=== PATIENT | female | born 1985 ===

== ENCOUNTER 2017-04-12 09:45 | Emergency (ER) | payer MEDICAID ==
[2017-04-12 09:54] VITALS: O2SAT 100
[2017-04-12] MEDS ORDERED: Sodium Chloride 0.9% 1,000 ML IV ONE (10:13)
[2017-04-12] MEDS ORDERED: Sodium Chloride 0.9% 1,000 ML ONE (10:34)
--- NOTE | 2017-04-12 10:38 | RAD ---
PROCEDURE: CHEST RADIOGRAPH, 1 VIEW HISTORY: chest pain COMPARISON: 09/30/2015 FINDINGS: LUNGS: Clear. PLEURA: No pneumothorax or pleural fluid seen. CARDIOVASCULAR: Normal. OSSEOUS STRUCTURES: No significant abnormalities. VISUALIZED UPPER ABDOMEN: Normal. OTHER FINDINGS: None. IMPRESSION: No active disease.
[2017-04-12 10:54] LABS: BASO % 0.3 % (0.0-2.0); EOS % 0.2 % (0.0-4.0); HEMATOCRIT 36.6 % (34.0-47.0); LYMPH # 1.6 K/uL (1.0-4.3); LYMPH % 20.3 % (20.0-40.0); MEAN CORPUSCULAR HEMOGLOBIN 28.7 pg (27.0-31.0); MEAN CORPUSCULAR HGB CONC 33.5 g/dL (33.0-37.0); MEAN PLATELET VOLUME 9.1 fL (7.2-11.7); MONO # 0.5 K/uL (0.0-0.8); MONO % 6.2 % (0.0-10.0); RED CELL DISTRIBUTION WIDTH 12.9 % (11.5-14.5); WHITE BLOOD COUNT 7.8 K/uL (4.8-10.8)
[2017-04-12 11:01] LABS: MEAN CELL VOLUME 85.5 fL (81.0-99.0)
[2017-04-12 11:25] LABS: CHLORIDE 103 mmol/L (98-107)
[2017-04-12 11:26] LABS: SODIUM 138 mmol/L (132-148)
[2017-04-12 11:28] LABS: GFR AFRICAN-AMERICAN > 60
[2017-04-12 11:29] LABS: ALB/GLOB RATIO 1.6 (1.0-2.1); ALKALINE PHOSPHATASE 62 U/L (38-126); ALT/SGPT 13 U/L (9-52); AST/SGOT 57 U/L (14-36); BILIRUBIN,TOTAL 0.7 mg/dL (0.2-1.3); BLOOD UREA NITROGEN 9 mg/dL (7-17); CALCIUM 9.1 mg/dl (8.6-10.4); CARBON DIOXIDE 24 mmol/L (22-30); GLUCOSE,RANDOM 98 mg/dL (65-105); TOTAL PROTEIN 7.1 g/dL (6.3-8.3)
[2017-04-12 11:52] LABS: POTASSIUM 4.1 mmol/L (3.6-5.2)
[2017-04-12 12:21] VITALS: BP 113/78; PULSE 86; RESP 14; TEMP 98
--- NOTE | 2017-04-12 12:23 | C.PDOC ---
History Of Present Illness 31-year-old female, PMHx includes Anxiety and Hiatal hernia, presents to the emergency department with complaints of a sharp pain in her chest, since last night. Patient denies shortness of breath, fevers, cough, numbness/weakness, nausea/vomiting, arm pain, swelling extremities, or any other associated symptoms. No medications taken for symptoms. No known FMHx of cardiac disease < 50yrs. Chief Complaint (Nursing): Chest Pain History Per: Patient History/Exam Limitations: no limitations Onset/Duration Of Symptoms: Hrs Current Symptoms Are (Timing): Still Present Severity: Moderate Quality: Sharp Past Medical History Reviewed: Historical Data, Nursing Documentation, Vital Signs Vital Signs: Last Vital Signs Temp 98 F 04/12/17 12:19 Pulse 86 04/12/17 12:19 Resp 14 04/12/17 12:19 BP 113/78 04/12/17 12:19 Pulse Ox 100 04/12/17 12:25 - Medical History PMH: Anxiety, Asthma, GERD, Hiatal Hernia Denies: Diabetes, Hepatitis, HIV, HTN, Seizures, Sexually Transmitted Disease Family History: States: No Known Family Hx - Social History Hx Tobacco Use: Yes Hx Alcohol Use: Yes Hx Substance Use: No - Immunization History Hx Tetanus Toxoid Vaccination: No Hx Influenza Vaccination: Yes Hx Pneumococcal Vaccination: No Review Of Systems Except As Marked, All Systems Reviewed And Found Negative. Constitutional: Negative for: Fever, Chills Cardiovascular: Positive for: Chest Pain Respiratory: Negative for: Cough, Shortness of Breath Gastrointestinal: Negative for: Nausea, Vomiting Musculoskeletal: Negative for: Neck Pain, Back Pain Neurological: Negative for: Weakness, Numbness Physical Exam - Physical Exam Appears: Non-toxic, No Acute Distress Skin: Normal Color, Warm, Dry Head: Atraumatic, Normacephalic Eye(s): bilateral: Normal Inspection, PERRL, EOMI Nose: Normal Throat: Normal Neck: Normal Cardiovascular: Rhythm Regular Respiratory: Normal Breath Sounds Gastrointestinal/Abdominal: Normal Exam Back: Normal Inspection Extremity: Normal ROM ED Course And Treatment - Laboratory Results Result Diagrams: 04/12/17 10:50 04/12/17 10:50 ECG: Interpreted By Me, Viewed By Me ECG Rhythm: Sinus Rhythm ECG Interpretation: No Acute Changes Rate From EC O2 Sat by Pulse Oximetry: 100 Disposition - Disposition Referrals: [facility] [Outside] [facility] [Outside] Disposition: HOME/ ROUTINE Disposition Time: 11:30 Condition: GOOD Additional Instructions: Thank you for letting us take care of you today. Your provider was Dr. Carmichael. You were treated for noncardiac chest pain. The emergency medical care you received today was directed at your acute symptoms. If you were prescribed any medication, please fill it and take as directed. It may take several days for your symptoms to resolve. Return to the Emergency Department if your symptoms worsen, do not improve, or if you have any other problems. Please contact your doctor or call one of the physicians/clinics you have been referred to that are listed on the Patient Visit Information form that is included in your discharge packet. Bring any paperwork you were given at discharge with you along with any medications you are taking to your follow up visit. Our treatment cannot replace ongoing medical care by a primary care provider (PCP) outside of the emergency department. Thank you for allowing the [facility] team to be part of your care today. Follow up with your doctor in 3-4 days for re-evaluation. Instructions: Noncardiac Chest Pain (ED) - Clinical Impression Clinical Impression: Non-cardiac chest pain
--- NOTE | 2017-04-15 08:43 | CARD ---
APPROVED REPORT EKG Measurement Heart [id number] [place] [id number] <Conclusion> Normal sinus rhythm Normal ECG
== END 2017-04-12 12:20 | disposition home or self-care (01) ==
LOC: C.ER 09:45
DX: R07.89 Other chest pain (principal)
CPT/HCPCS: 71010; 80053; 84484; 85025; 93005; 96374; 99284; J1885; J7040

== ENCOUNTER 2017-07-12 08:55 | Emergency (ER) | payer MEDICAID ==
[2017-07-12 09:07] VITALS: RESP 16; O2SAT 99
--- NOTE | 2017-07-12 11:20 | C.PDOC ---
History Of Present Illness Patient is a 32 year old female, with past medical history of anxiety, presents to Emergency Department for evaluation of intermittent chest wall discomfort for the past 3 days. Pt reports being seen by PMD who prescribed her Xanax, and Paxil. Pt reports taking Xanax with mild improvement. Pt admits to feeling nervous and anxious. Otherwise, denies any shortness of breath, cough, nausea, vomiting, fever, or any other associated symptoms at this time. Time Seen by Provider: 07/12/17 09:40 Chief Complaint (Nursing): Chest Pain History Per: Patient History/Exam Limitations: no limitations Onset/Duration Of Symptoms: Days (3) Current Symptoms Are (Timing): Still Present Quality: "Pain" Modifying Factors: None Exacerbating Factors: None Alleviating Factors: None Recent travel outside of the [place]: No Additional History Per: Patient Past Medical History Reviewed: Historical Data, Nursing Documentation, Vital Signs Vital Signs: Last Vital Signs Temp 98.5 F 07/12/17 09:04 Pulse 80 07/12/17 09:54 Resp 16 07/12/17 09:04 BP 115/65 07/12/17 09:54 Pulse Ox 99 07/12/17 11:22 - Medical History PMH: Anxiety, Asthma, GERD, Hiatal Hernia Family History: States: Unknown Family Hx - Social History Hx Tobacco Use: Yes Hx Alcohol Use: No Hx Substance Use: No - Immunization History Hx Tetanus Toxoid Vaccination: No Hx Influenza Vaccination: No Hx Pneumococcal Vaccination: No Review Of Systems Except As Marked, All Systems Reviewed And Found Negative. Constitutional: Negative for: Fever, Chills Cardiovascular: Positive for: Chest Pain (chest wall). Negative for: Palpitations, Edema, Light Headedness Respiratory: Negative for: Cough, Shortness of Breath, SOB with Excertion Gastrointestinal: Negative for: Nausea, Vomiting, Abdominal Pain Musculoskeletal: Negative for: Neck Pain, Back Pain Skin: Negative for: Rash, Bruising Neurological: Negative for: Weakness, Numbness, Headache, Dizziness Psych: Positive for: Anxiety Physical Exam - Physical Exam Appears: Non-toxic, No Acute Distress Skin: Normal Color, Warm, Dry Head: Atraumatic, Normacephalic Eye(s): bilateral: Normal Inspection, PERRL, EOMI Oral Mucosa: Moist Neck: Normal ROM, Supple Chest: Symmetrical, No Deformity, No Tenderness Cardiovascular: Rhythm Regular, No Murmur Respiratory: No Accessory Muscle Use, No Rales, No Rhonchi, No Wheezing Gastrointestinal/Abdominal: Soft, No Tenderness Back: No CVA Tenderness Extremity: Normal ROM, No Pedal Edema Neurological/Psych: Oriented x3, Normal Speech, Normal Cognition ED Course And Treatment O2 Sat by Pulse Oximetry: 99 (on RA) Pulse Ox Interpretation: Normal Medical Decision Making Medical Decision Making: patient feeling better , requests discharge Disposition Counseled Patient/Family Regarding: Diagnosis - Disposition Disposition: HOME/ ROUTINE Disposition Time: 12:32 Condition: STABLE Additional Instructions: Please follow up with your doctor for a referral to therapy for your anxiety Forms: [facility] ([place] Islander), General Discharge Instructions - POA Present On Arrival: None - Clinical Impression Clinical Impression: Anxiety - Scribe Statement The provider has reviewed the documentation as recorded by the Hannaibbadnar Red All medical record entries made by the Scribe were at my direction and personally dictated by me. I have reviewed the chart and agree that the record accurately reflects my personal performance of the history, physical exam, medical decision making, and the department course for this patient. I have also personally directed, reviewed, and agree with the discharge instructions and disposition.
[2017-07-12 12:36] VITALS: BP 128/65; PULSE 74; TEMP 98
--- NOTE | 2017-07-15 10:19 | CARD ---
APPROVED REPORT EKG Measurement Heart [id number] [place] [id number] [id number] <Conclusion> Normal sinus rhythm Normal ECG
== END 2017-07-12 12:43 | disposition home or self-care (01) ==
LOC: C.ER 08:55
DX: F41.9 Anxiety disorder, unspecified (principal)

== ENCOUNTER 2017-07-15 12:27 | Emergency (ER) | payer MEDICAID ==
[2017-07-15 12:42] VITALS: BP 125/79; PULSE 82; TEMP 98.2; O2SAT 99
--- NOTE | 2017-07-15 14:24 | C.PDOC ---
History Of Present Illness 32-year-old female, presents to the emergency department with complaints of three-day duration of pain to left ear lobe, that is associated with swelling and erythema, that is associated with discharge. Patient denies fevers, nausea/ vomiting, or any other associated symptoms. No other complaints at this time. Time Seen by Provider: 07/15/17 13:11 Chief Complaint (Nursing): ENT Problem History Per: Patient History/Exam Limitations: None Onset/Duration Of Symptoms: Days Past Medical History Reviewed: Historical Data, Nursing Documentation, Vital Signs Vital Signs: Last Vital Signs Temp 98.2 F 07/15/17 12:38 Pulse 82 07/15/17 12:38 Resp 20 07/15/17 14:43 BP 125/79 07/15/17 12:38 Pulse Ox 99 07/15/17 14:24 - Medical History PMH: Anxiety, Asthma, GERD, Hiatal Hernia Denies: Diabetes, Hepatitis, HIV, HTN, Seizures, Sexually Transmitted Disease Family History: States: No Known Family Hx - Social History Hx Tobacco Use: Yes Hx Alcohol Use: No Hx Substance Use: No - Immunization History Hx Tetanus Toxoid Vaccination: No Hx Influenza Vaccination: No Hx Pneumococcal Vaccination: No Review Of Systems Except As Marked, All Systems Reviewed And Found Negative. Constitutional: Negative for: Fever ENT: Positive for: Ear Pain Respiratory: Negative for: Shortness of Breath Neurological: Negative for: Weakness, Numbness Physical Exam - Physical Exam Appears: Non-toxic, No Acute Distress Skin: Warm, Dry, No Rash Head: Atraumatic, Normacephalic Ear(s): Left: Other (Purulent discharge from back of left ear, coming from earring hole. Leonor auricular erythema and tenderness with one lymph node.) Nose: Normal Oral Mucosa: Moist Lips: Normal Appearing Neck: Normal ROM Chest: Symmetrical Cardiovascular: Rhythm Regular, No Murmur Respiratory: Normal Breath Sounds, No Accessory Muscle Use Extremity: Normal ROM Neurological/Psych: Oriented x3, Normal Speech ED Course And Treatment O2 Sat by Pulse Oximetry: 99 Disposition - Disposition Referrals: Vinh Munoz MD [Staff Provider] - Disposition: HOME/ ROUTINE Disposition Time: 14:22 Condition: STABLE Additional Instructions: Follow up with PMD and ENT specialist within 1-2 days. Return to [facility] feel worse. Prescriptions: Mupirocin 2% Ointment [Bactroban Ointment] 1 appl TP BID #1 tube Cephalexin [cephalexin] 500 mg PO Q6 #28 cap Instructions: Cellulitis (ED) Forms: [employer] [facility] (Estonian) - Clinical Impression Clinical Impression: Cellulitis of earlobe - Scribe Statement The provider has reviewed the documentation as recorded by the Scribe (Josee Lantigua) All medical record entries made by the Scribe were at my direction and personally dictated by me. I have reviewed the chart and agree that the record accurately reflects my personal performance of the history, physical exam, medical decision making, and the department course for this patient. I have also personally directed, reviewed, and agree with the discharge instructions and disposition.
[2017-07-15 14:43] VITALS: RESP 20
== END 2017-07-15 14:43 | disposition home or self-care (01) ==
LOC: C.ER 12:27
DX: H60.12 Cellulitis of left external ear (principal)

== ENCOUNTER 2018-05-22 00:53 | Emergency (ER) | payer MEDICAID ==
[2018-05-22 01:10] VITALS: O2SAT 100
--- NOTE | 2018-05-22 01:49 | C.PDOC ---
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 Patient states she takes Xanax as needed and her last dose was 2 days ago but she ran out medication. Patient also states she is dealing with a lot of family stressors, and complaints of worsening chest pain, palpitation, and SOB with anxiety. Denies drug use or any other associated symptoms. 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 PS TAKES XANAX NEEDED, LAST DOSE 2 DAYS AGO BUT HAS RUN OUT OF MEDS. PS DEALING W ALOT OF FAMILY STRESSORS, CO WORSENING CP AND PALPITATIONS, SOB W ANXIETY. DENIES DRUG USE. NO OTHER ASSOC SX EXAM MILD DIST NONTOXIC HEENT NEG LUNGS CTA B/L NO W/R/R CV RRR PSYCH +ANXIETY CRYING BUT CONSOLABLE, COOPERATIVE NO ACUTE PSYCHOSIS, SI/SA; NO ACUTE INTOX REMAINDER NEG Time Seen by Provider: 05/22/18 01:12 Chief Complaint (Nursing): Anxiety History Per: Patient History/Exam Limitations: no limitations Onset/Duration Of Symptoms: Hrs Current Symptoms Are (Timing): Still Present Recent travel outside of the [place]: No Past Medical History Reviewed: Historical Data, Nursing Documentation, Vital Signs Vital Signs: Last Vital Signs Temp 98.4 F 05/22/18 01:05 Pulse 85 05/22/18 01:05 Resp 20 05/22/18 01:05 BP 142/86 05/22/18 01:05 Pulse Ox 100 05/22/18 02:43 - Medical History PMH: Anxiety, Asthma, GERD, Hiatal Hernia Surgical History: No Surg Hx Family History: States: Unknown Family Hx - Social History Hx Tobacco Use: Yes Hx Alcohol Use: No Hx Substance Use: No - Immunization History Hx Tetanus Toxoid Vaccination: No Hx Influenza Vaccination: No Hx Pneumococcal Vaccination: No Review Of Systems Constitutional: Negative for: Fever, Chills Cardiovascular: Positive for: Chest Pain, Palpitations Respiratory: Positive for: Shortness of Breath Gastrointestinal: Negative for: Nausea, Vomiting, Abdominal Pain, Diarrhea Skin: Negative for: Rash Neurological: Negative for: Weakness, Numbness Psych: Positive for: Anxiety Physical Exam - Physical Exam Appears: Non-toxic, In Acute Distress (Mild ) Skin: Normal Color, Warm, Dry, No Rash Head: Atraumatic, Normacephalic Eye(s): bilateral: Normal Inspection, PERRL, EOMI Ear(s): Bilateral: Normal Nose: Normal, No Discharge, No Deformity Oral Mucosa: Moist Throat: Normal, No Erythema, No Exudate, No Drooling, No Mass Neck: Supple Chest: Symmetrical, No Tenderness Cardiovascular: Rhythm Regular, No Murmur Respiratory: Normal Breath Sounds (Clear to auscultation bilaterally), No Rales , No Rhonchi, No Wheezing, Other (NARD) Pulses: Left Radial: Normal, Right Radial: Normal Neurological/Psych: Oriented x3, Normal Speech, Other (ANXIOUS; CRYING BUT CONSOLABLE; COOPERATIVE; NO ACUTE PSYCHOSIS, SI/SA; NO ACUTE INTOXICATION; NO FOCAL DEFICITS ) Gait: Steady ED Course And Treatment - Laboratory Results Result Diagrams: 05/22/18 02:03 05/22/18 02:03 ECG: Interpreted By Me ECG Rhythm: Sinus Rhythm ECG Interpretation: Normal Rate From EC O2 Sat by Pulse Oximetry: 100 (RA) Pulse Ox Interpretation: Normal - Radiology CXR: Interpreted by Me CXR Interpretation: Yes: No Acute Disease Reevaluation Time: 02:42 Reassessment Condition: Improved Medical Decision Making Medical Decision Making: Administered Xanax. Ordered EKG, blood work, and CXR. Disposition Counseled Patient/Family Regarding: Studies Performed, Diagnosis, Need For Followup - Disposition Referrals: YOUR,PMD [Other] Disposition: HOME/ ROUTINE Disposition Time: 02:43 Condition: IMPROVED Instructions: Chest Pain That Is Not Caused by the Heart (DC), Anxiety, Adult ( DC) Forms: [facility] (Pashto), Work Excuse - Clinical Impression Clinical Impression: Chest pain, Anxiety - Scribe Statement The provider has reviewed the documentation as recorded by the Nuzhat Vernon All medical record entries made by the Hannaibbandar were at my direction and personally dictated by me. I have reviewed the chart and agree that the record accurately reflects my personal performance of the history, physical exam, medical decision making, and the department course for this patient. I have also personally directed, reviewed, and agree with the discharge instructions and disposition.
[2018-05-22 02:14] LABS: BASO % 0.3 % (0.0-2.0); EOS % 0.4 % (0.0-4.0); HEMOGLOBIN 12.7 g/dL (11.0-16.0); LYMPH # 1.9 K/uL (1.0-4.3); MEAN CELL VOLUME 85.3 fL (81.0-99.0); MEAN CORPUSCULAR HEMOGLOBIN 28.5 pg (27.0-31.0); MEAN CORPUSCULAR HGB CONC 33.5 g/dL (33.0-37.0); MEAN PLATELET VOLUME 9.3 fL (7.2-11.7); MONO # 0.8 K/uL (0.0-0.8); MONO % 6.8 % (0.0-10.0); NEUT # 8.9 K/uL (1.8-7.0); NEUT % 76.5 % (50.0-75.0); RBC 4.44 Mil/uL (3.80-5.20); WHITE BLOOD COUNT 11.7 K/uL (4.8-10.8)
[2018-05-22 02:25] LABS: BLOOD UREA NITROGEN 9 mg/dL (7-17); CALCIUM 9.8 mg/dl (8.6-10.4); GFR AFRICAN-AMERICAN > 60; GFR NON-AFRICAN AMERICAN > 60
[2018-05-22 03:01] VITALS: BP 121/85; PULSE 71; RESP 18; TEMP 97.9
--- NOTE | 2018-05-22 09:51 | RAD ---
Date of service: 05/22/2018 HISTORY: chest pain COMPARISON: Portable chest 04/12/2017. TECHNIQUE: Chest PA and lateral FINDINGS: LUNGS: No active pulmonary disease. PLEURA: No significant pleural effusion identified. No pneumothorax apparent. CARDIOVASCULAR: Normal. OSSEOUS STRUCTURES: No significant abnormalities. VISUALIZED UPPER ABDOMEN: Normal. OTHER FINDINGS: None. IMPRESSION: No interval acute cardiopulmonary disease appreciated.
--- NOTE | 2018-05-23 11:36 | CARD ---
APPROVED REPORT Date of service: 05/22/2018 EKG Measurement Heart [id number] [place] 134P71 [id number] <Conclusion> Normal sinus rhythm Normal ECG
== END 2018-05-22 02:57 | disposition home or self-care (01) ==
LOC: C.ER 00:53
DX: F41.9 Anxiety disorder, unspecified (principal); R07.9 Chest pain, unspecified; K21.9 Gastro-esophageal reflux disease without esophagitis; J45.909 Unspecified asthma, uncomplicated; F17.210 Nicotine dependence, cigarettes, uncomplicated

== ENCOUNTER 2018-09-27 10:50 | Emergency (ER) | payer MEDICAID ==
[2018-09-27 10:52] VITALS: BMI 26.2
[2018-09-27 11:02] VITALS: O2SAT 98
--- NOTE | 2018-09-27 11:24 | C.PDOC ---
Time Seen by Provider: 09/27/18 11:24 Chief Complaint (Nursing): Abdominal Pain History Per: Patient History/Exam Limitations: no limitations Onset/Duration Of Symptoms: Days Current Symptoms Are (Timing): Still Present Past Medical History Vital Signs: Last Vital Signs Temp 99.6 F 09/27/18 10:54 Pulse 114 H 09/27/18 10:54 Resp 17 09/27/18 10:54 BP 110/72 09/27/18 10:54 Pulse Ox 98 09/27/18 10:54 - Medical History PMH: Anxiety, Asthma, GERD, Hiatal Hernia Denies: Diabetes, Hepatitis, HIV, HTN, Seizures, Sexually Transmitted Disease Family History: States: Unknown Family Hx - Social History Hx Tobacco Use: Yes Hx Alcohol Use: No Hx Substance Use: No - Immunization History Hx Tetanus Toxoid Vaccination: No Hx Influenza Vaccination: No Hx Pneumococcal Vaccination: No ED Course And Treatment O2 Sat by Pulse Oximetry: 98 Disposition - Disposition
[2018-09-27 11:31] LABS: HCG,QUALITATIVE URINE NEGATIVE (NEGATIVE)
[2018-09-27 11:33] LABS: SQUAMOUS EPITHIAL 9 /hpf (0-5); URINE BILIRUBIN NEGATIVE (NEGATIVE); URINE BLOOD 1+ (NEGATIVE); URINE CLARITY Hazy (Clear); URINE COLOR Yellow (YELLOW); URINE GLUCOSE (UA) NORMAL (Normal); URINE LEUKOCYTE ESTERASE NEG Leu/uL (Negative); URINE PROTEIN NEGATIVE (NEGATIVE); URINE UROBILINOGEN NORMAL mg/dL (0.2-1.0)
--- NOTE | 2018-09-27 12:12 | C.PDOC ---
History Of Present Illness 33yo female, comes to ER with a mild crampy abdominal pain, present for the past 3 weeks. Patient reports an episode of loose stools today. Otherwise, no fever, chills, chest pain, or vomiting. No additional medical complaints. Patient denies being . Time Seen by Provider: 09/27/18 11:24 Chief Complaint (Nursing): Abdominal Pain History Per: Patient History/Exam Limitations: no limitations Onset/Duration Of Symptoms: Persistent Current Symptoms Are (Timing): Still Present Location Of Pain/Discomfort: LLQ Quality Of Discomfort: Cramping Additional History Per: Patient Abnormal Vaginal Bleeding: No Past Medical History Reviewed: Historical Data, Nursing Documentation, Vital Signs Vital Signs: Last Vital Signs Temp 99.6 F 09/27/18 10:54 Pulse 114 H 09/27/18 10:54 Resp 17 09/27/18 10:54 BP 110/72 09/27/18 10:54 Pulse Ox 98 09/27/18 10:54 - Medical History PMH: Anxiety, Asthma, GERD, Hiatal Hernia Denies: Diabetes, Hepatitis, HIV, HTN, Seizures, Sexually Transmitted Disease Surgical History: No Surg Hx Family History: States: No Known Family Hx - Social History Hx Tobacco Use: Yes Hx Alcohol Use: No Hx Substance Use: No - Immunization History Hx Tetanus Toxoid Vaccination: No Hx Influenza Vaccination: No Hx Pneumococcal Vaccination: No Review Of Systems Except As Marked, All Systems Reviewed And Found Negative. Constitutional: Negative for: Fever, Chills Cardiovascular: Negative for: Chest Pain Respiratory: Negative for: Shortness of Breath Gastrointestinal: Positive for: Abdominal Pain, Other (loose stools). Negative for: Nausea, Vomiting, Constipation Physical Exam - Physical Exam Appears: Non-toxic, No Acute Distress Skin: Normal Color, Warm Head: Atraumatic, Normacephalic Eye(s): bilateral: Normal Inspection Neck: Normal ROM, Supple Chest: Symmetrical Cardiovascular: Rhythm Regular Respiratory: Normal Breath Sounds Gastrointestinal/Abdominal: Soft, Tenderness (mild left abdominal tenderness; no epigastric tenderness), No Mass, No Guarding, No Rebound Back: Normal Inspection Extremity: Normal ROM Neurological/Psych: Oriented x3 ED Course And Treatment - Laboratory Results Lab Interpretation: Normal (UA neg.) Urine POC: Negative O2 Sat by Pulse Oximetry: 98 (RA) Pulse Ox Interpretation: Normal Medical Decision Making Medical Decision Making: mild crampy LLQ discomfort, loose stools x 2 today many prior w/u ua/preg neg Disposition Doctor Will See Patient In The: Office Counseled Patient/Family Regarding: Studies Performed, Diagnosis - Disposition Referrals: Shay Sarmiento MD [Medical Doctor] - Disposition: HOME/ ROUTINE Disposition Time: 12:11 Condition: GOOD Additional Instructions: maalox 30 cc/d every 4 hours as needed for diarrhea and crampy belly discomfort urinalysis/ tests NEGATIVE today BRAT diet: Bananas, white rice, applesauce, toast/bread for 2 days outpatient foillow-up with your PMD as needed. Instructions: Diarrhea in Adolescents and Adults Forms: [employer] [facility] (Arabic) - Clinical Impression Clinical Impression: Diarrhea - Scribe Statement The provider has reviewed the documentation as recorded by the Nuzhat Holder Provider Attestation: All medical record entries made by the Hannaibbandar were at my direction and personally dictated by me. I have reviewed the chart and agree that the record accurately reflects my personal performance of the history, physical exam, medical decision making, and the department course for this patient. I have also personally directed, reviewed, and agree with the discharge instructions and disposition.
[2018-09-27 12:48] VITALS: BP 112/76; PULSE 103; RESP 14; TEMP 100.9
== END 2018-09-27 12:49 | disposition home or self-care (01) ==
LOC: C.ER 10:50
DX: R19.7 Diarrhea, unspecified (principal); K21.9 Gastro-esophageal reflux disease without esophagitis; F41.9 Anxiety disorder, unspecified

== ENCOUNTER 2019-01-14 20:33 | Emergency (ER) | payer MEDICAID ==
[2019-01-14 20:33] VITALS: BMI 26.2
[2019-01-14 20:44] VITALS: O2SAT 100
[2019-01-14] MEDS ORDERED: Naproxen 550 mg Tab PO STA (22:12)
--- NOTE | 2019-01-14 22:15 | C.PDOC ---
History Of Present Illness 33 year old female with no significant PMHx presents to the ED c/o chest pain that worsens with movement. Patient reports she has been carrying her son more often lately, she did not taken any medications for her symptoms. Patient denies fever, chills, headache, SOB, palpitations, rash, fall, trauma, nausea, vomit. Time Seen by Provider: 01/14/19 22:01 Chief Complaint (Nursing): Chest Pain History Per: Patient History/Exam Limitations: no limitations Onset/Duration Of Symptoms: Days Current Symptoms Are (Timing): Still Present Quality: "Pain" Associated Symptoms: denies: Nausea, Dyspnea, Diaphoresis Exacerbating Factors: Movement Recent travel outside of the [place]: No Additional History Per: Patient Past Medical History Reviewed: Historical Data, Nursing Documentation, Vital Signs Vital Signs: Last Vital Signs Temp 98.2 F 01/14/19 20:43 Pulse 75 01/14/19 20:43 Resp 18 01/14/19 20:43 BP 122/79 01/14/19 20:43 Pulse Ox 100 01/14/19 20:43 - Medical History PMH: Anxiety, Asthma, GERD, Hiatal Hernia Denies: Diabetes, Hepatitis, HIV, HTN, Chronic Kidney Disease, Seizures, Sexually Transmitted Disease Surgical History: No Surg Hx Family History: States: Unknown Family Hx - Social History Hx Tobacco Use: Yes Hx Alcohol Use: No Hx Substance Use: No - Immunization History Hx Tetanus Toxoid Vaccination: No Hx Influenza Vaccination: No Hx Pneumococcal Vaccination: No Review Of Systems Constitutional: Negative for: Fever, Chills Eyes: Negative for: Vision Change Cardiovascular: Positive for: Chest Pain. Negative for: Palpitations Respiratory: Negative for: Cough, Shortness of Breath Gastrointestinal: Negative for: Nausea, Vomiting, Abdominal Pain Skin: Negative for: Rash Neurological: Negative for: Weakness, Numbness, Headache, Dizziness Physical Exam - Physical Exam Appears: Non-toxic, No Acute Distress Skin: Normal Color, Warm, Dry Head: Atraumatic, Normacephalic Eye(s): bilateral: Normal Inspection Oral Mucosa: Moist Neck: Normal ROM, Supple Chest: Symmetrical, No Tenderness Cardiovascular: Rhythm Regular Respiratory: Normal Breath Sounds, No Rales, No Rhonchi, No Wheezing Gastrointestinal/Abdominal: Soft, No Tenderness, No Guarding, No Rebound Extremity: Bilateral: Atraumatic, Normal Color And Temperature, Normal ROM Neurological/Psych: Oriented x3, Normal Speech, Normal Cognition Gait: Steady ED Course And Treatment O2 Sat by Pulse Oximetry: 100 (On RA) Pulse Ox Interpretation: Normal Medical Decision Making Medical Decision Making: Impression: Chest pain Plan: * CXR * Naproxen 550 mg PO Anticipate patient will be discharged 23:05 - Patient reports improvement to her pain after Naproxen was given, CXR was unremarkable. Patient was given prescription for Naproxen, was advised to follow up with PMD. Pain most likely costochondritis. Return parameters and w arning signs for chest pain were discussed. Disposition - Disposition Disposition: HOME/ ROUTINE Disposition Time: 23:09 Condition: STABLE Additional Instructions: Follow up with primary medical doctor as needed. Return to the emergency department if pain worsens or if you develop trouble breathing, dizziness, weakness, etc. Prescriptions: Naproxen 500 mg PO BID #14 tab Instructions: Chest Pain That Is Not Caused by the Heart (DC), Costochondritis (DC) Forms: [employer] (Romansh) Print Language: LITHUANIAN - Clinical Impression Clinical Impression: Chest discomfort, Non-cardiac chest pain - Scribe Statement The provider has reviewed the documentation as recorded by the Scribe Virgilio Ramsey All medical record entries made by the Scribe were at my direction and personally dictated by me. I have reviewed the chart and agree that the record accurately reflects my personal performance of the history, physical exam, medical decision making, and the department course for this patient. I have also personally directed, reviewed, and agree with the discharge instructions and d isposition.
[2019-01-14] MEDS ORDERED: Naproxen 550 mg Tab PO ONE (22:29)
[2019-01-14 22:56] VITALS: BP 108/70; PULSE 80; RESP 16; TEMP 97.6
--- NOTE | 2019-01-15 08:27 | RAD ---
Date of service: 01/14/2019 HISTORY: cough COMPARISON: 05/22/2018 TECHNIQUE: Chest PA and lateral FINDINGS: LUNGS: No active pulmonary disease. PLEURA: No significant pleural effusion identified. No pneumothorax apparent. CARDIOVASCULAR: No aortic atherosclerotic calcification present. Normal cardiac size. No pulmonary vascular congestion. OSSEOUS STRUCTURES: No significant abnormalities. VISUALIZED UPPER ABDOMEN: Normal. OTHER FINDINGS: None. IMPRESSION: No active disease. No interval pathology noted.
--- NOTE | 2019-01-15 18:53 | CARD ---
APPROVED REPORT Date of service: 01/14/2019 EKG Measurement Heart [id number] <Conclusion> Normal sinus rhythm Normal ECG
== END 2019-01-14 23:17 | disposition home or self-care (01) ==
LOC: C.ER 20:33
DX: R07.89 Other chest pain (principal)